=== PATIENT | female | born 2005 | race African-American/Black ===

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

== ENCOUNTER 2024-01-23 12:28 | Outpatient (CLI) | payer OTHER, SELFPAY ==
--- NOTE | ~2024-01-23 | XR_ITS ---
Clinical Indication: TB exposure PA and lateral views of the chest: Comparison: None Findings: The lungs are clear, without evidence of focal consolidation or pleural effusion. Cardiome diastinal silhouette is within normal limits. Bones and soft tissues are unremarkable. Impression: Normal chest. Reviewed, dictated and finalized at [facility]. Impression: Normal chest.
== END 2024-01-23 12:29 | disposition home or self-care (01) ==
LOC: CHSIMG 12:31
PROVIDERS: PCP Family Medicine; Visit Provider Registered Nurse
DX: Z20.1 Contact with and (suspected) exposure to tuberculosis (principal)
CPT/HCPCS: 71046

== ENCOUNTER 2024-05-05 07:17 | Outpatient (CLI) | payer MEDICAID, SELFPAY ==
--- NOTE | ~2024-05-05 | US_ITS ---
EXAMINATION: US pelvic complete w TV DATE: 05/05/2024 08:31 INDICATION: Pelvic pain. TECHNIQUE: Multiple transabdominal and transvaginal sonographic images of the pelvis were obtained. COMPARISON: CT abdomen and pelvis 11/22/2023 FINDINGS: TRANSABDOMINAL ULTRASOUND: The uterus measures 7.3 x 4.0 x 5.6 cm. There is no free fluid in the pelvis. TRANSVAGINAL ULTRASOUND: The endometrial complex measures 3 mm in thickness. The right ovary measures 3.3 x 1.6 x 2.2 cm. The left ovary measures 2.9 x 1.6 x 2.8 cm. There is normal vascular flow in the ovaries. IMPRESSION: 1. Normal pelvis. Reviewed, dictated and finalized at location A. IMPRESSION: 1. Normal pelvis.
== END 2024-05-05 07:18 | disposition home or self-care (01) ==
PROVIDERS: PCP Family Medicine; Visit Provider Registered Nurse
DX: R10.2 Pelvic and perineal pain (principal)
CPT/HCPCS: 76830; 76856

== ENCOUNTER 2024-12-29 08:35 | Outpatient (CLI) | payer OTHER, SELFPAY ==
--- NOTE | ~2024-12-29 | US_ITS ---
Pelvic ultrasound. Clinical History: Ovarian cyst Technique: Realtime transabdominal and transvaginal scanning of the pelvis was performed. Color flow Doppler and Doppler spectral analysis were performed. Findings: The uterus is anteverted. The endometrial stripe has a thickness of 5 mm. Trace fluid pres ent in the central cavity. No focal mass is identified. The right ovary measures 3.3 x 2.0 x 1.7 cm. No significant right ovarian or adnexal mass is seen. The left ovary measures 3.1 x 1.8 x 2.2 cm. No significant left ovarian or adnexal mass is seen. Sma ll bilateral follicular ovarian cysts are present. Vascular flow present in both ovaries on Doppler s pectral analysis. There is trace free fluid in the cul de sac. Impression: No significant abnormality seen. Reviewed, dictated and finalized at [facility]. Impression: No significant abnormality seen.
--- OUTSIDE RECORDS SUMMARY | 2024-12-29 08:56 | XMS_ITS | Encounter Summary ---
Author Organization [facility] Address [address] [place] [address] Care Team Providers Care Management Trainer Name Role Phone Dawit Rivera MD Primary Care Provider No, Physician Primary Care Provider Dawit Rivera MD Primary Care Provider Encounter Details Date Type Department Care Team (Late st Contact Info) Description 04/06/2020 Social Work [facility] [address] [place] [address] April Winston, MALINA Social History Tobacco Use Types Packs/Day Years Used Date Smoking Tobacco: Never Smokeless Tobacco: Never Alcohol Use Standard Drinks/Week Comments Never 0 (1 standard drink = 0.6 oz pur e alcohol) AUDIT-C Answer Date Recorded Q1: How often do you have a drink containing alc ohol? Never 01/07/2020 Average Number of Drinks Not on file 020 Frequency of Binge Drinking Not on file 12/15 Comments No Sex and Gender Information Value Date Recorded Sex Assigned at Not on file Legal Sex Female 11:25 PM CDT Gender Identity Not on file Sexual Orientation Not on file documented as of this encounter Plan of Treatment Not on file documented as of this encounter Visit Diagnoses Not on filedocumented in this encounter Care Teams Management Trainer Relationship Specialty Start Date End Date Dawit Rivera MD PCP - General 09/10/19 05/31/22 No, Physician PCP - General 06/01/22 05/25/24 Dawit Rivera MD [address] [place], [place] [id number] PCP - General Family Medicine 05/26/24 documented as of this encounter
--- OUTSIDE RECORDS SUMMARY | 2024-12-29 08:56 | XMS_ITS | Referral Summary ---
Author Organization [facility] Address [address] [place] [id number] Care Team Providers Care Botanical Technical Officer Name Role Phone Dawit Rivera MD Primary Care Provider Encounters Date Type Department Care Team Description 11/25/2024 1:00 PM CDT - 11/25/2024 11:59 PM CDT Hospital Encounter [facility] [address] [place] [id number] Discharge Disposition: Discharge to home or self care 11/24/2024 2:30 PM CDT Lab [address] [phone] 11/12/2024 3:07 PM KEYBOARDING TEACHER - 11/12/2024 11:59 PM KEYBOARDING TEACHER Hospital Encounter [facility] [address] [place] [id number] Screening-pulmonary TB Discharge Disposition: Discharge to home or self care 10/14/2024 [facility] Post Discharge Follow up phone call [facility] [address] [place] [id number] Tenisha Mckeon RN 10/13/2024 10:12 PM KEYBOARDING TEACHER - 10/14/2024 5:20 AM KEYBOARDING TEACHER Emergency [facility] [address] [place] [address] Valentino Byrd MD Winston, MD Nery Dehydration (Primary Dx); Nausea and vomiting, unspecified vomiting type; Diarrhea, unspecified type Discharge Disposition: Discharge to home or self care 10/07/2024 5:50 AM KEYBOARDING TEACHER - 10/07/2024 7:20 AM KEYBOARDING TEACHER Emergency [facility] [address] [place] [address] Lucia Brady MD Dental infection (Primary Dx); Pain due to dental caries Discharge Disposition: Discharge to home or self care from Last 3 Months Allergies No known active allergies Medications sertraline (ZOLOFT) 50 mg tablet Take 50 mg by mouth daily Active PNV with vehlthv-jaoz-BM 27 mg iron- 1 mg tabletIndicatio ns: Take 1 tablet by mouth daily 30 tablet 9 Active famotidine (PEPCID) 20 mg tablet Take 1 tablet (20 mg total) by mouth daily as needed for heartburn 20 tablet 0 Active HYDROcodone-zak taminophen (NORCO) 5-325 mg per tabletIndicatio ns:Pain Take 1 tablet by mouth every 4 (four) hours as needed for pain 12 tablet 0 Active ibuprofen (ADVIL,MOTRIN) 600 mg tabletIndicatio ns:Pain Take 1 tablet (600 mg total) by mouth 3 (three) times a day Take with food. 30 tablet 2 Active diphenhydrAMINE 25 mg capsule Take 1 tablet/capsule (25 mg total) by mouth every 6 (six) hours as needed for itching 20 capsule 3 Active penicillin v potassium (VEETID) 500 mg tablet Take 1 tablet (500 mg total) by mouth 3 (three) times a day 30 tablet 5 Active HYDROcodone-zak taminophen (NORCO) 5-325 mg per tabletIndicatio ns:Pain Take 1 tablet by mouth every 6 (six) hours as needed for pain for up to 6 doses 6 tablet 5 Active ondansetron (ZOFRAN) 4 mg tablet Take 1 tablet (4 mg total) by mouth every 6 (six) hours 12 tablet 5 Active Active Problems No known active problems Social History Tobacco Use Types Packs/Day Years [...] of Binge Drinking Not on file 12/15 Personal Safety Answer Date Recorded Have you ever been in or are you currently in a harmful physical or emotional relationship or is someone making you feel afraid or unsafe? Denies 10/13/2024 Comments No Sex and Gender Information Value Date Recorded Sex Assigned at Not on file Legal Sex Female 11:25 PM CDT Gender Identity Not on file Sexual Orientation Not on file Last Filed Vital Signs Vital Sign Reading Time Taken Comments Blood Pressure 121/74 10/13/2024 10:15 PM KEYBOARDING TEACHER Pulse 58 10/14/2024 1:00 AM KEYBOARDING TEACHER Temperature 37.1 C (98.7 F) 10/07/2024 5:47 AM KEYBOARDING TEACHER Respiratory Rate 24 10/14/2024 1:00 AM KEYBOARDING TEACHER Oxygen Saturation 98% 10/14/2024 1:00 AM KEYBOARDING TEACHER Inhaled Oxygen Concentration - - Weight 63.5 kg (139 lb 15.9 oz) 025 10:14 PM KEYBOARDING TEACHER Height 175.3 cm (5' 9 ) 01/01/2023 7:03 PM CDT Body Mass Index 20.67 01/01/2023 7:03 PM CDT Plan of Treatment Not on file Procedures Procedure Name Priority Date/Time Associated Diagnosis Comments CT ABDOMEN PELVIS WO CONTRAST Schedule Routine, Read Routine (OP Routine) 11/25/2024 2:02 PM CDT Abdominal pain, unspecified abdominal location XR CHEST PA LATERAL 2 VIEWS Schedule Routine, Read Routine (OP Routine) 11/12/2024 3:23 PM KEYBOARDING TEACHER Screening-pulmonar y TB CT ABDOMEN PELVIS W CONTRAST ED 10/14/2024 12:26 AM KEYBOARDING TEACHER XR CHEST 1 VIEW ED 10/13/2024 11:29 PM KEYBOARDING TEACHER POCT HCG, URINE Routine 10/13/2024 11:04 PM KEYBOARDING TEACHER URINALYSIS, MICROSCOPIC ONLY STAT 10/13/2024 10:39 PM KEYBOARDING TEACHER URINE CULTURE STAT 10/13/2024 10:39 PM KEYBOARDING TEACHER URINALYSIS AND REFLEX TO MICROSCOPIC AND CULTURE STAT 10/13/2024 10:39 PM KEYBOARDING TEACHER EGFR STAT 10/13/2024 10:13 PM KEYBOARDING TEACHER DIFFERENTIAL AUTO STAT 10/13/2024 10: 13 PM KEYBOARDING TEACHER LIPASE STAT 10/13/2024 10:13 PM KEYBOARDING TEACHER SEPSIS LACTATE WITH REFLEX Routine 10/13/2024 10:13 PM KEYBOARDING TEACHER COMPREHENSIVE METABOLIC PANEL STAT 10/13/2024 10:13 PM KEYBOARDING TEACHER CBC WITH AUTO DIFFERENTIAL STAT 10/13/2024 10:13 PM KEYBOARDING TEACHER N. GONORRHOEAE/C. TRACHOMATIS AMPLIFICATION Routine 01/07/2020 12:14 PM CDT from Last 3 Months or Most Recently Relevant to Health Maintenance Results * CT Abdomen Pelvis WO Contrast (11/25/2024 2:02 PM CDT) Anatomical Region Laterality Modality Body N/A Computed Tomogra phy 12/01/2024 7:53 AM CDT Narrative 12/01/2024 8:01 AM CDT EXAM DESCRIPTION: CT ABDOMEN PELVIS WO CONTRAST REASON FOR STUDY: r10.9 Pelvic pain for 3 days, hematuria, history of stones TECHNIQUE: CT scan of the abdomen and pelvis performed without intravenous and without oral contrast using helical scanning technique. Reconstructed coronal and sagittal MPR images reviewed. All images stored on PACS. Automated exposure control was used as a dose optimization technique for this examination. COMPARISON: 10/14/2024 FINDINGS: The sensitivity for detection of visceral lesions is diminished without the use of intravenous contrast. LOWER CHEST: No significant pulmonary abnormalities. No effusion. LIVER: Normal size. No identified cystic or solid masses. GALLBLADDER: No stones identified. No wall thickening or inflammatory changes. BILE DUCTS: No intrahepatic or extrahepatic ductal dilatation. SPLEEN: Normal size. No focal lesions. PANCREAS: No identified cystic or solid masses. No significant calcifications. No adjacent inflammation or peripancreatic fluid collections. Pancreatic duct not dilated. ADRENALS: Normal. KIDNEYS/URINARY TRACT: No identified significant cystic or solid masses. No stones. No hydronephrosis or hydroureter. Urinary bladder is unremarkable. GI: There is no bowel obstruction or inflammatory bowel disease. A large amount of stool is seen in the colon. PERITONEUM: There is no free air. There may be a small amount of free pelvic fluid. RETROPERITONEUM: No mass or adenopathy. REPRODUCTIVE: A 3.5 x 5.5 cm oval fluid collection in the right adnexa probably represents an ovarian cyst. VASCULATURE: No abdominal aortic aneurysm. MUSCULOSKELETAL: No significant abnormality. OTHER: No other abnormality. IMPRESSION: Large amount of stool in the colon. Approximately 5.5 cm fluid collection in the right adnexa, probably an ovarian cyst. Pelvic ultrasound is recommended for further evaluation. There may be a small amount of adjacent free pelvic fluid. THIS IS AN ELECTRONICALLY VERIFIED FINAL REPORT 12/01/2024 8:01 AM - Electronically signed by Julio C Reis M.D. YANDY: YANDY Report ID: [id number] Reading Location: [id number] Procedure Note Glenn Reis MD - 12/01/2024 EXAM DESCRIPTION: CT ABDOMEN PELVIS WO CONTRAST REASON FOR STUDY: r10.9 Pelvic pain for 3 days, hematuria, history of stones TECHNIQUE: CT scan of the abdomen and pelvis performed without intravenousand without oral contrast using helical scanning technique. Reconstructed coronal and sagittal MPR images reviewed. All images stored on PACS.Automated exposure control was used as a dose optimization technique for this examination. COMPARISON: 10/14/2024 FINDINGS: The sensitivity for detection of visceral lesions is diminished withoutthe use of intravenous contrast. LOWER CHEST: No significant pulmonary abnormalities. No effusion. LIVER: Normal size. No identified cystic or solid masses. GALLBLADDER: No stones identified. No wall thickening or inflammatory changes. BILE DUCTS: No intrahepatic or extrahepatic ductal dilatation. SPLEEN: Normal size. No focal lesions. PANCREAS: No identified cystic or solid masses. No significant calcifications. No adjacent inflammation or peripancreatic fluidcollections. Pancreatic duct not dilated. ADRENALS: Normal. KIDNEYS/URINARY TRACT: No identified significant cystic or solid masses.No stones. No hydronephrosis or hydroureter. Urinary bladder isunremarkable. GI: There is no bowel obstruction or inflammatory bowel disease. Alarge amount of stool is seen in the colon. PERITONEUM: There is no free air. There may be a small amount of free pelvic fluid. RETROPERITONEUM: No mass or adenopathy. REPRODUCTIVE: A 3.5 x 5.5 cm oval fluid collection in the right adnexa probably represents an ovarian cyst. VASCULATURE: No abdominal aortic aneurysm. MUSCULOSKELETAL: No significant abnormality. OTHER: No other abnormality. IMPRESSION: Large amount of stool in the colon. Approximately 5.5 cm fluid collection in the right adnexa, probably an ovarian cyst. Pelvic ultrasound is recommended for further evaluation.There may be a small amount of adjacent free pelvic fluid. THIS IS AN ELECTRONICALLY VERIFIED FINAL REPORT 12/01/2024 8:01 AM - Electronically signed by Julio C Reis M.D. 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 COMPARISON: 10/13/2024. FINDINGS: LUNGS: No focal opacity, pleural effusion, or pneumothorax. HEART/MEDIASTINUM: Cardiac silhouette normal in size. Mediastinal and hilar contours appear normal. LINES/TUBES: None. BONES: No acute osseous abnormality. IMPRESSION: No acute cardiopulmonary abnormality. THIS IS AN ELECTRONICALLY VERIFIED FINAL REPORT 11/16/2024 7:40 AM - Electronically signed by Edgar Mccoy M.D. 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 COMPARISON: 10/13/2024. FINDINGS: LUNGS: No focal opacity, pleural effusion, or pneumothorax. HEART/MEDIASTINUM: Cardiac silhouette normal in size. Mediastinal andhilar contours appear normal. LINES/TUBES: None. BONES: No acute osseous abnormality. IMPRESSION: No acute cardiopulmonary abnormality. THIS IS AN ELECTRONICALLY VERIFIED FINAL REPORT 11/16/2024 7:40 AM - Electronically signed by Edgar Mccoy M.D. CH: ERNESTINE Report ID: [id number] Reading Location: [id number] David Lo SPACE ENGINEER IMG XR PROCEDURES F inal Result * CT Abdomen Pelvis W Contrast (10/14/2024 12:26 AM KEYBOARDING TEACHER) Anatomical Region Laterality Modality Body N/A Computed Tomogra phy 10/14/2024 12:3 1 AM KEYBOARDING TEACHER Narrative 10/14/2024 12:34 AM KEYBOARDING TEACHER EXAM DESCRIPTION: CT ABDOMEN PELVIS W CONTRAST REASON FOR STUDY: Abdominal pain, acute, nonlocalized Patient presents with abdominal pain nausea and vomiting onset this morning. TECHNIQUE: CT scan of the abdomen and pelvis performed with intravenous and without oral contrast using helical scanning technique with dynamic intravenous contrast injection. Reconstructed coronal and sagittal MPR images reviewed. All images stored on PACS. Automated exposure control was used as a dose optimization technique for this examination. CONTRAST TYPE/DOSE: 100mL of IOVERSOL 350 MG IODINE/ML INTRAVENOUS SYRINGE injected via intravenous COMPARISON: None FINDINGS: LOWER CHEST: No significant pulmonary abnormalities. No effusion. LIVER: Normal size. No identified cystic or solid masses. GALLBLADDER: Unremarkable BILE DUCTS: No intrahepatic or extrahepatic ductal dilatation. SPLEEN: Normal size. No focal lesions. PANCREAS: No identified cystic or solid masses. No significant calcifications. No adjacent inflammation or peripancreatic fluid collections. Pancreatic duct not dilated. ADRENALS: Normal. KIDNEYS/URINARY TRACT: No identified significant cystic or solid masses. No visualized stones. No hydronephrosis or hydroureter. Symmetric enhancement. Urinary bladder is unremarkable. GI: No dilated bowel loops. No obvious wall thickening. The appendix is not clearly identified. No significant diverticular disease. PERITONEUM: No ascites or free air. RETROPERITONEUM: No mass or adenopathy. REPRODUCTIVE: No significant abnormality. VASCULATURE: No abdominal aortic aneurysm. MUSCULOSKELETAL: No significant abnormality. OTHER: No other abnormality. IMPRESSION: No acute finding. THIS IS AN ELECTRONICALLY VERIFIED FINAL REPORT 10/14/2024 12:34 AM - Electronically signed by Jm Solano M.D. KH: RENE Report ID: [id number] Reading Location: [place] [address] Procedure Note Jm Solano MD - 10/14/2024 EXAM DESCRIPTION: CT ABDOMEN PELVIS W CONTRAST REASON FOR STUDY: Abdominal pain, acute, nonlocalized Patient presents with abdominal pain nausea and vomiting onset thismorning. TECHNIQUE: CT scan of the abdomen and pelvis performed with intravenousand without oral contrast using helical scanning technique with dynamic intravenous contrast injection. Reconstructed coronal and sagittal MPRimages reviewed. All images stored on PACS. Automated exposure control was usedas a dose optimization technique for this examination. CONTRAST TYPE/DOSE: 100mL of IOVERSOL 350 MG IODINE/ML INTRAVENOUSSYRINGE injected via intravenous COMPARISON: None FINDINGS: LOWER CHEST: No significant pulmonary abnormalities. No effusion. LIVER: Normal size. No identified cystic or solid masses. GALLBLADDER: Unremarkable BILE DUCTS: No intrahepatic or extrahepatic ductal dilatation. SPLEEN: Normal size. No focal lesions. PANCREAS: No identified cystic or solid masses. No significant calcifications. No adjacent inflammation or peripancreatic fluidcollections. Pancreatic duct not dilated. ADRENALS: Normal. KIDNEYS/URINARY TRACT: No identified significant cystic or solid masses.No visualized stones. No hydronephrosis or hydroureter. Symmetricenhancement. Urinary bladder is unremarkable. GI: No dilated bowel loops. No obvious wall thickening. The appendix isnot clearly identified. No significant diverticular disease. PERITONEUM: No ascites or free air. RETROPERITONEUM: No mass or adenopathy. REPRODUCTIVE: No significant abnormality. VASCULATURE: No abdominal aortic aneurysm. MUSCULOSKELETAL: No significant abnormality. OTHER: No other abnormality. IMPRESSION: No acute finding. THIS IS AN ELECTRONICALLY VERIFIED FINAL REPORT 10/14/2024 12:34 AM - Electronically signed by Jm Solano M.D. KH: KH Report ID: [id number] Reading Location: [place] [address] Valentino Byrd MD IMG CT PROCEDURES Final Result * XR Chest 1 Vw Portable (10/13/2024 11:29 PM KEYBOARDING TEACHER) Anatomical Region Laterality Modality Body, Chest N/A Computed Radiogr aphy 10/13/2024 11:3 6 PM KEYBOARDING TEACHER Narrative 10/13/2024 11:39 PM KEYBOARDING TEACHER EXAM DESCRIPTION: XR CHEST 1 VIEW REASON FOR STUDY: Pain Patient arrives to the ED with complaints of abdominal pain and vomiting that began roughly 2 hours ago. Patient states she had 3 teeth pulled yesterday and started on penicillin today. Patient ashen in color at time of triage. Patient visitor states she was at [facility] and was becoming bluish in the lips and brought her here. TECHNIQUE: Frontal radiographic view(s) of the chest. COMPARISON: 06/24/2017 FINDINGS: LUNGS: The lungs are clear. No focal pulmonary parenchymal consolidation, pleural effusion, or pneumothorax. HEART/MEDIASTINUM: Cardiac silhouette normal in size. Mediastinal and hilar contours appear normal. LINES/TUBES: None. BONES: No acute osseous abnormality. IMPRESSION: No acute cardiopulmonary abnormality. THIS IS AN ELECTRONICALLY VERIFIED FINAL REPORT 10/13/2024 11:39 PM - Electronically signed by Oscar Monson M.D. AT: AT Report ID: [id number] Reading Location: [id number] Procedure Note Oscar Monson MD - 10/13/2024 EXAM DESCRIPTION: XR CHEST 1 VIEW REASON FOR STUDY: Pain Patient arrives to the ED with complaints of abdominal pain and vomitingthat began roughly 2 hours ago. Patient states she had 3 teeth pulled yesterdayand started on penicillin today. Patient ashen in color at time of triage.Patient visitor states she was at [facility] and was becoming bluish in thelips and brought her here. TECHNIQUE: Frontal radiographic view(s) of the chest. COMPARISON: 06/24/2017 FINDINGS: LUNGS: The lungs are clear. No focal pulmonary parenchymalconsolidation, pleural effusion, or pneumothorax. HEART/MEDIASTINUM: Cardiac silhouette normal in size. Mediastinal andhilar contours appear normal. LINES/TUBES: None. BONES: No acute osseous abnormality. IMPRESSION: No acute cardiopulmonary abnormality. THIS IS AN ELECTRONICALLY VERIFIED FINAL REPORT 10/13/2024 11:39 PM - Electronically signed by Oscar Monson M.D. AT: AT Report ID: [id number] Reading Location: [id number] us Valentino Byrd MD IMG XR PROCEDURES Final Result * POCT hCG, urine (10/13/2024 11:04 PM KEYBOARDING TEACHER) HCG, ur, POC Negative Negative Lot Number [id number] QC Backgroud Clear Acceptable QC Control Line Acceptable Urine 10/13/2024 11:0 4 PM KEYBOARDING TEACHER us Valentino Byrd MD POINT OF CARE TEST ORDERABLES Final Result * (ABNORMAL) Urinalysis reflex to microscopic and culture Urine (10/13/2024 10:39 PM KEYBOARDING TEACHER) Color, ur Yellow Yellow Clarity, ur Turbid(A) Clear [facility] (MY) Specific gravity, ur 1.024 1.003 - 1.030 [facility] (MY) pH, urine 5.5 [facility] (MY) Comment: Interpretive Data U rine pH is affected by diet, medications, systemic acid-base disturbances, and renal tubular function. pH may affect urinary stone formation. For example, urine pH below 6.0 may help reduce the tendency for calcium phosphate stones and pH greater than 6.0 may reduce the tendency for uric acid stone formation. Source: [facility] Current Interpretive Data was last revised on 2017 Protein, ur ql 1+(A) Negative [facility] (MY) Glucose, ur ql Negative Negative [facility] (MY) Ketones, ur 3+(A) Negative [facility] (MY) Bilirubin, ur Negative Negative [facility] (MY) Blood, ur 3+(A) Negative [facility] (MY) Urobilinogen, ur <2.0 <2.0 mg/dL [facility] (MY) Nitrite, ur Negative Negative [facility] (MY) Leukocyte esterase, ur Negative Negative [facility] (MY) UA reflex comment Reflex to microscopic UA will be performed. [facility] (MY) Urine 10/13/2024 10:3 9 PM KEYBOARDING TEACHER 10/13/2024 11:03 PM KEYBOARDING TEACHER us Valentino Byrd MD LAB MICROBIOLOGY - GENERAL ORD ERABLES Final Result [facility] (MY[facility] 1 [facility] [place] [address] * (ABNORMAL) Urinalysis, microscopic only (10/13/2024 10:39 PM KEYBOARDING TEACHER) WBC, ur 11-20(A) 0 - 5 /HPF RBC, ur >50(A) 0 - 2 /HPF [facility] (MY) Epithelial cells, squamous, ur 1-5 0 - 5 /HPF [facility] (MY) Bacteria, ur Trace(A) [facility] (MY) Mucous, ur Present(A) [facility] (MY) Culture Reflex Comment Reflex to urine culture will be performed. [facility] (MY) Urine 10/13/2024 10:3 9 PM KEYBOARDING TEACHER 10/13/2024 11:03 PM KEYBOARDING TEACHER Valentino Byrd MD LAB URINE ORDERABLES Final Res ult [facility]AWLA (MY) 1 [facility] [place] [address] * Urine culture Urine (10/13/2024 10:39 PM KEYBOARDING TEACHER) Report Final Report: Less than 100,000 colonies/mL (clinically insignificant growth based on current clinical standards) Comment:Testing performed by : [facility], [address] [facility] [place] [address] Organism (CLINICALLY INSIGNIFICANT GROWTH LESLIE CHAWLA (MY) Urine 10/13/2024 10:3 9 PM KEYBOARDING TEACHER 10/14/2024 6:16 AM KEYBOARDING TEACHER Narrative [facility] CHAWLA (MY) - 10/15/2024 10:11 AM KEYBOARDING TEACHER Urine culture reflexed based upon urinalysis results. Testing performed by [facility] ([phone]) Valentino Byrd MD LAB MICROBIOLOGY - GENERAL ORD ERABLES Final Result Performing Organization Address [facility]/ZIP Co de Phone Number KARENDEACON CAMMY (MY) 1 [facility] [place] [address] * Sepsis Lactate w/ Reflex (10/13/2024 10:13 PM KEYBOARDING TEACHER) Sepsis Lactate 2.0 0.7 - 2.0 mmol/L Blood 10/13/2024 10:1 3 PM KEYBOARDING TEACHER 10/13/2024 10:16 PM KEYBOARDING TEACHER Valentino Byrd MD LAB BLOOD ORDERABLES Final Res ult LESLIE CHAWLA (MY) 1 [facility] [place] [address] * eGFR (10/13/2024 10:13 PM KEYBOARDING TEACHER) eGFR >90 >=60 mL/min/1. 73 m2 Comment: Interpretive Data Reference Interval Normal >/= 90 mL/min/1.73m2 Mildly decreased* 60 - 89 mL/min/1.73m2 Mildly to moderately decreased 45 - 59 mL/min/1.73m2 Moderately to severely decreased 30 - 44 mL/min/1.73m2 Severely decreased 15 - 29 mL/min/1.73m2 Kidney Failure < 15 mL/min/1.73m2 *Relative to young adult level Estimated glomerular filtration rate is determined by the 2020 CKD-EPI equation recommended by the National Kid[employer] (A Unifying Approach to GFR Estimation: Recommendations of the NKF-ASK Task Force on Reassessing the Inclusion of Race in Diagnosing Kidney Disease, SN 2020). The CKD-EPI equation should not be used for patients with unstable renal function and has not been validated in children and those over 70. Current interpretive data was last reviewed 2021. Blood 10/13/2024 10:1 3 PM KEYBOARDING TEACHER 10/13/2024 10:16 PM KEYBOARDING TEACHER us Valentino Byrd MD LAB BLOOD ORDERABLES Final Res ult [facility] ([place] 1 [facility] Department [place] [address] * (ABNORMAL) Differential, auto (10/13/2024 10:13 PM KEYBOARDING TEACHER) Neutrophil abs 17.0(H) 1.5 - 6.5 K/cumm Imm gran abs 0.1 0.0 - 0.1 K/cumm [facility] (MY) Lymphocyte abs 1.2 0.8 - 3.3 K/cumm [facility] (MY) Monocyte abs 0.9(H) 0.2 - 0.8 K/cumm [facility] (MY) Eosinophil abs 0.0 0.0 - 0.5 K/cumm [facility] (MY) Basophil abs 0.1 0.0 - 0.1 K/cumm [facility] (MY) Neutrophil pct 88.3 % [facility] (MY) Comment: Interpretive Data Percent cell count reference ranges are not reported, since discordance with absolute values may lead to misinterpretation of CBC data. Current Interpretive Data was last revised on 2017. Imm gran pct 0.5 % [facility] (MY) Comment: Interpretive Data Percent cell count reference ranges are not reported, since discordance with absolute values may lead to misinterpretation of CBC data. Current Interpretive Data was last revised on 2017. Lymphocyte pct 6.3 % [facility] ([place]) Comment: Interpretive Data Percent cell count reference ranges are not reported, since discordance with absolute values may lead to misinterpretation of CBC data. Current Interpretive Data was last revised on 2017. Monocyte pct 4.5 % [facility] ([place]) Comment: Interpretive Data Percent cell count reference ranges are not reported, since discordance with absolute values may lead to misinterpretation of CBC data. Current Interpretive Data was last revised on 2017. Eosinophil pct 0.1 % [facility] (MY) Comment: Interpretive Data Percent cell count reference ranges are not reported, since discordance with absolute values may lead to misinterpretation of CBC data. Current Interpretive Data was last revised on 2017. Basophil pct 0.3 % [facility] (MY) Comment: Interpretive Data Percent cell count reference ranges are not reported, since discordance with absolute values may lead to misinterpretation of CBC data. Current Interpretive Data was last revised on 2017. Blood 10/13/2024 10:1 3 PM KEYBOARDING TEACHER 10/13/2024 10:16 PM KEYBOARDING TEACHER us Valentino Byrd MD LAB BLOOD ORDERABLES Final Res ult LESLIE CHAWLA (MY) 1 [facility] Department [place] [address] * (ABNORMAL) CBC with auto differential (10/13/2024 10:13 PM KEYBOARDING TEACHER) WBC 19.3(H) 3.8 - 9.9 K/cumm Hgb 12.9 11.9 - 15.5 g/dL [facility] (MY) Hct 40.1 35.6 - 45.5 % [facility] (MY) Plt 313 150 - 400 K/cumm [facility] (MY) MPV 10.1 9.1 - 12.3 fL [facility] (MY) RBC 4.61 3.90 - 5.20 M/cumm [facility] (MY) MCV 87.0 81.3 - 96.4 fL [facility] (MY) MCH 28.0 27.1 - 33.3 pg [facility] (MY) MCHC 32.2(L) 32.3 - 35.7 g/dL [facility] (MY) RDW CV 13.4 11.1 - 14.9 % [facility] (MY) RDW SD 43.0 35.7 - 48.1 fL [facility] (MY) NRBC abs 0.00 0.00 - 0.01 K/cumm [facility] (MY) Blood 10/13/2024 10:1 3 PM KEYBOARDING TEACHER 10/13/2024 10:16 PM KEYBOARDING TEACHER Valentino Byrd MD LAB BLOOD ORDERABLES Final Res ult [facility] (MY) 1 [facility] [place] [address] * Lipase (10/13/2024 10:13 PM KEYBOARDING TEACHER) Lipase 32 10 - 99 Units/L Blood 10/13/2024 10:1 3 PM KEYBOARDING TEACHER 10/13/2024 10:16 PM KEYBOARDING TEACHER Valentino Byrd MD LAB BLOOD ORDERABLES Final Res ult [facility] (MY) 1 [facility] [place] [address] * (ABNORMAL) Comprehensive metabolic panel (10/13/2024 10:13 PM KEYBOARDING TEACHER) Sodium 138 135 - 145 mmol/L Potassium, pl 3.6 3.3 - 4.9 mmol/L [facility] (MY) Chloride 105 97 - 110 mmol/L [facility] (MY) CO2 19(L) 22 - 32 mmol/L [facility] (MY) Anion gap 15 2 - 15 mmol/L [facility] (MY) BUN 14 6 - 25 mg/dL [facility] (MY) Creatinine 0.72 0.60 - 1.10 mg/dL [facility] (MY) Glucose 175 70 - 199 mg/dL [facility] (MY) Comment: Interpretive Data Fasting glucose >/= 126 mg/dl is diagnostic for diabetes. Fasting is defined as no caloric intake for at least 8 hours. Fasting glucose between 100 mg/dl to 125 mg/dl is diagnostic of prediabetes. In a patient with classic symptoms of hyperglycemia or hyperglycemic crisis, a random glucose >/= 200 mg/dl is diagnostic for diabetes. In the absence of unequivocal hyperglycemia, results should be confirmed by repeat testing. The classification and Diagnosis of Diabetes Diabetes Care 2021; 46: S19-S40. Current interpretive data was last revised 2022. Calcium 9.3 8.5 - 10.3 mg/dL [facility] (MY) Bilirubin, total 0.3 0.1 - 1.2 mg/dL [facility] (MY) Protein, pl 7.5 6.5 - 8.5 g/dL [facility] (MY) Albumin 4.5 3.5 - 5.0 g/dL [facility] (MY) Alk phos 63(L) 70 - 260 Units/L [facility] (MY) ALT 11 7 - 45 Units/L [facility] (MY) AST 16 10 - 45 Units/L [facility] (MY) Blood 10/13/2024 10:1 3 PM KEYBOARDING TEACHER 10/13/2024 10:16 PM KEYBOARDING TEACHER us Valentino Byrd MD LAB BLOOD ORDERABLES Final Res ult [facility] (MY) 1 [facility] Department [place] [address] * N. gonorrhoeae/C. trachomatis Amplification Urine (01/07/2020 12:14 PM CDT) C. trachomatis See Comment Not detected LESLIE CHAWLA (MY) Comment: Result is indeterminate suggest recollection. Testing performed by: [facility], [address] [place] [address]., [address] N. gonorrhoeae Not detected Not detected LESLIE CHAWLA (MY) Comment: Testing performed by the [facility]. This assay detects Chlamydia trachomatis and Neisseria gonorrhoeae by nucleic acid amplification testing (NAAT). This test is approved by the [facility] Food and Drug Administration and the performance characteristics have been verified by the laboratory. The performance characteristics of this test have not been evaluated in women or individuals less than 16 years of age. Testing performed by: [facility], [address] [place] [address]., [address] Urine (None) 01/07/2020 12:1 4 PM CDT 01/07/2020 6:24 PM CDT us Yemi Leigh MD LAB MICROBIOLOGY - GENERAL ORDERABLES Final Result LESLIE CHAWLA (MY) 1 [facility] Department [place] [address] from Last 3 Months or Most Recently Relevant to Health Maintenance Insurance [facility] Advance Directives For more information, please contact: [phone] * Full Code (Latest Code Status on File) Date Activated Date Inactivated Comments 04/06/2020 2:00 PM 04/08/2020 4:48 PM * Full Code Date Activated Date Inactivated Comments 04/05/2020 7:29 PM 04/06/2020 1:59 PM Full CPR in case of cardiopulmonary arrest Care Teams Botanical Technical Officer Relationship Specialty Start Date End Date Dawit Rivera MD [address] [place], [place] [id number] PCP - General Family Medicine 05/26/24
--- OUTSIDE RECORDS SUMMARY | 2024-12-29 08:56 | XMS_ITS | Clinical Summary ---
Author Organization [facility] Address [address] [place] [id number] Care Team Providers Care Footwear Sales Associate Name Role Phone Dawit Rivera MD Primary Care Provider Allergies No known active allergies Medications sertraline (ZOLOFT) 50 mg tablet Take 50 mg by mouth daily Active PNV with lbhlfte-efon-UV 27 mg iron- 1 mg tabletIndicatio ns: [...] Active Active Problems No known active problems Encounters Date Type Department Care Team Description 11/25/2024 1:00 PM CDT - 11/25/2024 11:59 PM CDT Hospital Encounter [facility] [address] [place] [phone] Discharge Disposition: Discharge to home or self care 11/24/2024 2:30 PM CDT Lab [address] [phone] 11/12/2024 3:07 PM INDUSTRIAL HYGIENE MANAGER - 11/12/2024 11:59 PM INDUSTRIAL HYGIENE MANAGER Hospital Encounter [address] [address] Screening-pulmonary TB Discharge Disposition: Discharge to home or self care 10/14/2024 [facility] Post Discharge Follow up phone call [facility] [address] [place] [address] Tenisha Mckeon RN 10/13/2024 10:12 PM INDUSTRIAL HYGIENE MANAGER - 10/14/2024 5:20 AM [facility] Emergency [facility] [address] [place] [address] Valentino Byrd MD MedoraNery MD Dehydration (Primary Dx); Nausea and vomiting, unspecified vomiting type; Diarrhea, unspecified type Discharge Disposition: Discharge to home or self care 10/07/2024 5:50 AM INDUSTRIAL HYGIENE MANAGER - 10/07/2024 7:20 AM [facility] Emergency [facility] [address] [place] [id number] Lucia Brady MD Dental infection (Primary Dx); Pain due to dental caries Discharge Disposition: Discharge to home or self care from Last 3 Months Surgical History Surgery Date Site/Laterality Comments UMBILICAL HERNIA REPAIR Medical History Medical History Date Comments Chlamydia 2019 Social History Tobacco Use Types Packs/Day Years [...] on file Sexual Orientation Not on file Obstetrics History Para Term AB IAB SAB Ectopic Multiple Livin g Live Births 1 1 1 0 1 1 Date Outcome GA Total Labor Labor/2nd/3rd Weight Sex Type Anes PTL Denisha A1 A5 Name Clin 2019 Term 40w 2d 4h 53m 3h 29m/1h 18m/0h 06m 3.889 kg (8 lb 9.2 oz) M Vag-S pont Epidur al N Livin g 8 9 CHRIS SON,B OYABB Paras Nicole MD Complications:None Delivery Location:This [facility]) Last Filed Vital Signs Vital Sign Reading Time Taken Comments Blood Pressure 121/74 10/13/2024 10:15 PM INDUSTRIAL HYGIENE MANAGER Pulse 58 10/14/2024 1:00 AM INDUSTRIAL HYGIENE MANAGER Temperature 37.1 C (98.7 F) 10/07/2024 5:47 AM INDUSTRIAL HYGIENE MANAGER Respiratory Rate 24 10/14/2024 1:00 AM INDUSTRIAL HYGIENE MANAGER Oxygen Saturation 98% 10/14/2024 1:00 AM INDUSTRIAL HYGIENE MANAGER Inhaled Oxygen Concentration - - Weight 63.5 kg (139 lb 15.9 oz) 025 10:14 PM INDUSTRIAL HYGIENE MANAGER Height 175.3 cm (5' 9 ) 01/01/2023 7:03 PM CDT Body Mass Index 20.67 01/01/2023 7:03 PM CDT Plan of Treatment Health Maintenance Due Date Last Done Comments Depression Screening 2004 Hepatitis C Screening 2004 Meningococcal B Vaccine (1 of 2 - Standard) 2020 Chlamydia and Gonorrhea (GC/CT) Screening 01/06/2021 01/07/2020 Regular Well Visit/Exam 18-64 2022 Influenza Vaccine (Season Ended) 2025 DTaP/Tdap/Td Vaccine (8 - Td or Tdap) 03/07/2030 03/07/2020, 04/16/2016, 05/03/2010, Additional history exists Hepatitis B Screening Completed 04/30/2005 , 02/28/2005, 2004, Additional history exists Pneumococcal vaccine <65 Completed 006, 04/30/2005, 02/28/2005, Additional history exists Varicella Vaccines Completed 05/03/2010, 03/13/2006 Meningococcal Vaccine Aged Out 04/16/2016 No billie galilea eligible based on patient's age to complete this topic HPV Vaccines Completed 07/19/2019, 04/16/2016 Procedures Procedure Name Priority Date/Time Associated Diagnosis Comments CT ABDOMEN PELVIS WO CONTRAST Schedule Routine, Read Routine (OP Routine) 11/25/2024 2:02 PM CDT Abdominal pain, unspecified abdominal location XR CHEST PA LATERAL 2 VIEWS Schedule Routine, Read Routine (OP Routine) 11/12/2024 3:23 PM INDUSTRIAL HYGIENE MANAGER Screening-pulmonar y TB CT ABDOMEN PELVIS W CONTRAST ED 10/14/2024 12:26 AM INDUSTRIAL HYGIENE MANAGER XR CHEST 1 VIEW ED 10/13/2024 11:29 PM INDUSTRIAL HYGIENE MANAGER POCT HCG, URINE Routine 10/13/2024 11:04 PM INDUSTRIAL HYGIENE MANAGER URINALYSIS, MICROSCOPIC ONLY STAT 10/13/2024 10:39 PM INDUSTRIAL HYGIENE MANAGER URINE CULTURE STAT 10/13/2024 10:39 PM INDUSTRIAL HYGIENE MANAGER URINALYSIS AND REFLEX TO MICROSCOPIC AND CULTURE STAT 10/13/2024 10:39 PM INDUSTRIAL HYGIENE MANAGER EGFR STAT 10/13/2024 10:13 PM INDUSTRIAL HYGIENE MANAGER DIFFERENTIAL AUTO STAT 10/13/2024 10: 13 PM INDUSTRIAL HYGIENE MANAGER LIPASE STAT 10/13/2024 10:13 PM INDUSTRIAL HYGIENE MANAGER SEPSIS LACTATE WITH REFLEX Routine 10/13/2024 10:13 PM INDUSTRIAL HYGIENE MANAGER COMPREHENSIVE METABOLIC PANEL STAT 10/13/2024 10:13 PM INDUSTRIAL HYGIENE MANAGER CBC WITH AUTO DIFFERENTIAL STAT 10/13/2024 10:13 PM INDUSTRIAL HYGIENE MANAGER N. GONORRHOEAE/C. TRACHOMATIS AMPLIFICATION Routine 01/07/2020 12:14 [...] C Reis M.D. YANDY: YANDY Report ID: [id number] Reading Location: [id number] Procedure Note Glenn Reis MD - 12/01/2024 [...] C Reis M.D. YANDY: YANDY Report ID: [id number] Reading Location: [id number] us Larisa Mcconnell MD IMG CT PROCEDURES Catarina l Result * XR Chest PA Lateral 2 Views (11/12/2024 3:23 PM INDUSTRIAL HYGIENE MANAGER) Anatomical Region Laterality Modality Body, Chest N/A Computed Radiogr aphy 11/16/2024 7:40 AM INDUSTRIAL HYGIENE MANAGER Narrative 11/16/2024 7:40 AM INDUSTRIAL HYGIENE MANAGER EXAM DESCRIPTION: XR CHEST PA LATERAL 2 [...] Edgar Mccoy M.D. CH: ERNESTINE Report ID: [id number] Reading Location: [id number] Procedure Note Edgar Mccoy Jr., MD - [...] Edgar Mccoy M.D. CH: ERNESTINE Report ID: [id number] Reading Location: [id number] David Lo ESCROW SECRETARY IMG XR PROCEDURES F inal Result * CT Abdomen Pelvis W Contrast (10/14/2024 12:26 AM INDUSTRIAL HYGIENE MANAGER) Anatomical Region Laterality Modality Body N/A Computed Tomogra phy 10/14/2024 12:3 1 AM INDUSTRIAL HYGIENE MANAGER Narrative 10/14/2024 12:34 AM INDUSTRIAL HYGIENE MANAGER EXAM DESCRIPTION: CT ABDOMEN PELVIS W CONTRAST [...] Jm Solano M.D. KH: RENE Report ID: [id number] Reading Location: [place] [address] Procedure Note Jm Solano MD - 10/14/2024 [...] Jm Solano M.D. KH: KH Report ID: [id number] Reading Location: [id number] Valentino Byrd MD IMG CT PROCEDURES Final Result * XR Chest 1 Vw Portable (10/13/2024 11:29 PM INDUSTRIAL HYGIENE MANAGER) Anatomical Region Laterality Modality Body, Chest N/A Computed Radiogr aphy 10/13/2024 11:3 6 PM INDUSTRIAL HYGIENE MANAGER Narrative 10/13/2024 11:39 PM INDUSTRIAL HYGIENE MANAGER EXAM DESCRIPTION: XR CHEST 1 VIEW REASON FOR STUDY: Pain Patient arrives to the ED with complaints of abdominal pain and vomiting that began roughly 2 hours ago. Patient states she had 3 teeth pulled yesterday and started on penicillin today. Patient ashen in color at time of triage. Patient visitor states she was at [facility] and was becoming bluish in the [...] Oscar Monson M.D. AT: AT Report ID: [id number] Reading Location: [id number] Procedure Note Oscar Monson MD - 10/13/2024 EXAM DESCRIPTION: XR CHEST 1 VIEW REASON FOR STUDY: Pain Patient arrives to the ED with complaints of abdominal pain and vomitingthat began roughly 2 hours ago. Patient states she had 3 teeth pulled yesterdayand started on penicillin today. Patient ashen in color at time of triage.Patient visitor states she was at [facility] and was becoming bluish in thelips [...] Oscar Monson M.D. AT: AT Report ID: [id number] Reading Location: [place] [address] Valentino Byrd MD IMG XR PROCEDURES Final Result * POCT hCG, urine (10/13/2024 11:04 PM INDUSTRIAL HYGIENE MANAGER) HCG, ur, POC Negative Negative Lot Number [id number] QC Backgroud Clear Acceptable QC Control Line Acceptable Urine 10/13/2024 11:0 4 PM INDUSTRIAL HYGIENE MANAGER Valentino Byrd MD POINT OF CARE TEST ORDERABLES Final Result * (ABNORMAL) Urinalysis reflex to microscopic and culture Urine (10/13/2024 10:39 PM INDUSTRIAL HYGIENE MANAGER) Color, ur Yellow Yellow Clarity, ur Turbid(A) Clear LESLIE Arcos (MY) Specific gravity, ur 1.024 1.003 - 1.030 [facility] (MY) pH, urine 5.5 LESLIE CHAWLA (MY) Comment: Interpretive Data U rine pH is affected by diet, medications, systemic acid-base disturbances, and renal tubular function. pH may affect urinary stone formation. For example, urine pH below 6.0 may help reduce the tendency for calcium phosphate stones and pH greater than 6.0 may reduce the tendency for uric acid stone formation. Source: [employer] Current Interpretive Data was last revised on 2017 Protein, ur ql 1+(A) Negative [facility] (MY) Glucose, ur ql Negative Negative [facility] (MY) Ketones, ur 3+(A) Negative [facility] (MY) Bilirubin, ur Negative Negative [facility] (MY) Blood, ur 3+(A) Negative [facility] (MY) Urobilinogen, ur <2.0 <2.0 mg/dL [facility] (MY) Nitrite, ur Negative Negative [facility] (MY) Leukocyte esterase, ur Negative Negative [facility] (MY) UA reflex comment Reflex to microscopic UA will be performed. [facility] (MY) Urine 10/13/2024 10:3 9 PM INDUSTRIAL HYGIENE MANAGER 10/13/2024 11:03 PM INDUSTRIAL HYGIENE MANAGER Valentino Byrd MD LAB MICROBIOLOGY - GENERAL ORD ERABLES Final Result Performing Organization Address [facility] de Phone Number LESLIE [facility] (MY) 1 [facility] [employer] [address] * (ABNORMAL) Urinalysis, microscopic only (10/13/2024 10:39 PM INDUSTRIAL HYGIENE MANAGER) WBC, ur 11-20(A) 0 - 5 /HPF RBC, ur >50(A) 0 - 2 /HPF [facility] (MY) Epithelial cells, squamous, ur 1-5 0 - 5 /HPF [facility] (MY) Bacteria, ur Trace(A) [facility] (MY) Mucous, ur Present(A) [facility] (MY) Culture Reflex Comment Reflex to urine culture will be performed. [facility] (MY) Urine 10/13/2024 10:3 9 PM INDUSTRIAL HYGIENE MANAGER 10/13/2024 11:03 PM INDUSTRIAL HYGIENE MANAGER Valentino Byrd MD LAB URINE ORDERABLES Final Res ult Performing Organization Address [facility] Co de Phone Number LESLIE [facility] (MY) 1 [facility] [place] [address] * Urine culture Urine (10/13/2024 10:39 PM INDUSTRIAL HYGIENE MANAGER) Report Final Report: Less than 100,000 colonies/mL (clinically insignificant growth based on current clinical standards) Comment:Testing performed by : [facility], [address] [place]., [address] Organism (CLINICALLY INSIGNIFICANT GROWTH LESLIE [facility] (MY) Urine 10/13/2024 10:3 9 PM INDUSTRIAL HYGIENE MANAGER 10/14/2024 6:16 AM INDUSTRIAL HYGIENE MANAGER Narrative [facility] (MY) - 10/15/2024 10:11 AM INDUSTRIAL HYGIENE MANAGER Urine culture reflexed based upon urinalysis results. Testing performed by [facility] Microbiology Laboratory ([phone]) Valentino Byrd MD LAB MICROBIOLOGY - GENERAL ORD ERABLES Final Result LESLIE CHAWLA ([place]) 1 [facility] [place] [address] * Sepsis Lactate w/ Reflex (10/13/2024 10:13 PM INDUSTRIAL HYGIENE MANAGER) Pathologist [facility] Sepsis Lactate 2.0 0.7 - 2.0 mmol/L Blood 10/13/2024 10:1 3 PM INDUSTRIAL HYGIENE MANAGER 10/13/2024 10:16 PM INDUSTRIAL HYGIENE MANAGER Valentino Byrd MD LAB BLOOD ORDERABLES Final Res ult LESLIE [facility] ([place]) 1 [facility] [place] [address] * eGFR (10/13/2024 10:13 PM INDUSTRIAL HYGIENE MANAGER) Pathologist [facility] eGFR >90 >=60 mL/min/1. 73 m2 Comment: [...] Inclusion of Race in Diagnosing Kidney Disease, JASN 2020). The CKD-EPI equation should not be used for patients with unstable renal function and has not been validated in children and those over 70. Current interpretive data was last reviewed 2021. Blood 10/13/2024 10:1 3 PM INDUSTRIAL HYGIENE MANAGER 10/13/2024 10:16 PM INDUSTRIAL HYGIENE MANAGER us Valentino Byrd MD LAB BLOOD ORDERABLES Final Res ult [facility] ([place]) 1 [facility] [place] [address] * (ABNORMAL) Differential, auto (10/13/2024 10:13 PM INDUSTRIAL HYGIENE MANAGER) Neutrophil abs 17.0(H) 1.5 - 6.5 K/cumm [...] on 2017. Blood 10/13/2024 10:1 3 PM INDUSTRIAL HYGIENE MANAGER 10/13/2024 10:16 PM INDUSTRIAL HYGIENE MANAGER us Valentino Byrd MD LAB BLOOD ORDERABLES Final Res ult [facility] (MY) 1 [facility] [place] [address] * (ABNORMAL) CBC with auto differential (10/13/2024 10:13 PM INDUSTRIAL HYGIENE MANAGER) WBC 19.3(H) 3.8 - 9.9 K/cumm Hgb [...] [facility] (MY) Blood 10/13/2024 10:1 3 PM INDUSTRIAL HYGIENE MANAGER 10/13/2024 10:16 PM INDUSTRIAL HYGIENE MANAGER Valentino Byrd MD LAB BLOOD ORDERABLES Final Res ult Performing Organization Address City/[facility]/ZIP Co de Phone Number [facility] (MY) 1 [facility] [place] [address] * Lipase (10/13/2024 10:13 PM INDUSTRIAL HYGIENE MANAGER) Pathologist [facility] Lipase 32 10 - 99 Units/L Blood 10/13/2024 10:1 3 PM INDUSTRIAL HYGIENE MANAGER 10/13/2024 10:16 PM INDUSTRIAL HYGIENE MANAGER Valentino Byrd MD LAB BLOOD ORDERABLES Final Res ult Performing Organization Address City/[facility]/ZIP Co de Phone Number [facility] (MY) 1 [facility] [place] [address] * (ABNORMAL) Comprehensive metabolic panel (10/13/2024 10:13 PM INDUSTRIAL HYGIENE MANAGER) Sodium 138 135 - 145 mmol/L Potassium, pl 3.6 3.3 - 4.9 mmol/L [facility] Chloride 105 97 - 110 mmol/L [facility] ([facility] CO2 19(L) 22 - 32 mmol/L [facility] ([facility] Anion gap 15 2 - 15 mmol/L [facility] ([facility] BUN 14 6 - 25 mg/dL [facility] ([facility]) Creatinine 0.72 0.60 - 1.10 [...] [facility] (MY) Blood 10/13/2024 10:1 3 PM INDUSTRIAL HYGIENE MANAGER 10/13/2024 10:16 PM INDUSTRIAL HYGIENE MANAGER us Valentino Byrd MD LAB BLOOD ORDERABLES Final Res ult [facility] (MY) 1 [facility] [place] [address] * N. gonorrhoeae/C. trachomatis Amplification Urine (01/07/2020 12:14 PM CDT) C. trachomatis See Comment Not detected [facility] (MY) Comment: Result is indeterminate suggest recollection. Testing performed by: [facility], [address] [place] [address], [place]., [address] N. gonorrhoeae Not detected Not detected [facility] (MY) Comment: Testing performed by the [facility]. This assay detects Chlamydia trachomatis and Neisseria gonorrhoeae by nucleic acid amplification testing (NAAT). This test is approved by the [place] Food and Drug Administration and the performance characteristics have been verified by the laboratory. The performance characteristics of this test have not been evaluated in women or individuals less than 16 years of age. Testing performed by: [facility], [address] [place] [address]., [address] Urine (None) 01/07/2020 12:1 4 PM CDT 01/07/2020 6:24 PM CDT us Yemi Leigh MD LAB MICROBIOLOGY - GENERAL ORDERABLES Final Result [facility]IE [facility] ([place]) 1 [facility] [place] [address] from Last 3 Months or Most Recently Relevant to Health Maintenance Insurance [facility] Advance Directives For more information, please contact: [phone] * Full Code (Latest Code Status on File) Date Activated Date Inactivated Comments 04/06/2020 2:00 PM 04/08/2020 4:48 PM * Full Code Date Activated Date Inactivated Comments 04/05/2020 7:29 PM 04/06/2020 1:59 PM Full CPR in case of cardiopulmonary arrest Care Teams Footwear Sales Associate Relationship Specialty Start Date End Date Dawit Rivera MD [address] [place] [id number] PCP - General Family Medicine 05/26/24
--- OUTSIDE RECORDS SUMMARY | 2024-12-29 08:56 | XMS_ITS | Data Portability ---
Author Organization [facility] JAIROChelle Address [address] [place] [address] Care Team Providers Care Team Leader/Research Psychologist Name Role Phone SIMBA TIJERINA Art Director Assessment Encounter Date Assessment Date Assessment LastModified by Organization Details LastModified Time 06/17/2023 06/17/2023 classic secondary HSV outbreak. At pts request will get labwork to prove it will rx valtrex in the meantime may be interested in prophylaxis rhiannon Not available 06/17/2023 15:27:23 12/29/2023 12/29/2023 After discussing her irregular bleeding on depo and our list of options, she elects to go on some low dose OCPs before her depo would in February. will call back with progress rhiannon Not available 12/29/2023 16:10:33 Plan of Treatment Reminders Order Date Submit Date Provider Last Modified By Organization Details Last Modified Time Details Appointments None recorded. Lab test, urine 2022 023 [email or web address] In-Office Order, Internal Use Only DO Not Attach Compendium DO Not Attach Compendium, Do Not Delete/merge, [id number] 10:57:42 test, urine 2022 023 [email or web address] In-Office Order, Internal Use Only DO Not Attach Compendium DO Not Attach Compendium, Do Not Delete/merge, [id number] 14:19:01 hsv (1+2) igg, serum 2022 023 [facility], [address], [address], [place], [address], 3 11:12:38 Referral None recorded. Procedures None recorded. Surgeries None recorded. Imaging None recorded. Medication Orders 24 1 mg-20 mcg (24)/75 mg (4) tablet 2023 024 [employer] [facility] #82343, [address], [place], [id number], 4 18:46:19 medroxyprog esterone 150 mg/mL intramuscul ar suspension 2023 024 [address] [employer] [employer] [facility] #85435, [address], [place], [id number], 4 10:30:33 medroxyprog esterone 150 mg/mL intramuscul ar suspension 2023 024 [employer] #50496, [address], [place], [id number], 4 10:30:33 medroxyprog esterone 150 mg/mL intramuscul ar suspension [address] [employer] #26025, [address], [place], [id number], 3 10:57:42 valacyclovi r 1 gram tablet 2022 023 [facility] [employer] [facility] #20912, [address], [place], [id number], 3 15:26:51 Patient TargetsNo targets recorded. Patient Instructions Encounter Date Encounter Id Patient Instructions Last Modified By Organization Details Last Modified Time 06/17/2023 [id number] genital herpes i n teens: care instructions [email or web address] Not available 06/17/2023 15:22:17 Reason for Referral None Reported. Results Created Date Observation Date Name Description Value Unit Range Abnormal Flag Note LastModifiedBy Organization Detail LastModifiedTime 06/17/20 23 06/18/2023 HSV 1 AND 2 AB, IGG hsv 1 IgG, type spec <0.91 index 0.00-0 .90 Negat andrea <0.91 Equiv ocal 0.91 - 1.09 Posit andrea >1.09 Note: Negat andrea indic ates no antib odies detec quincy to HSV-1 . Equiv ocal may sugge st early infec tion. If clini thi appro priat e, retes t at later date. Posit andrea indic ates antib odies detec quincy to HSV-1 . Not Available [facility] ([facility]) [address], [place], [address], 06/18/2023 11:12:38 06/17/20 23 06/18/2023 HSV 1 AND 2 AB, IGG hsv 2 IgG, type spec 8.83 index 0.00-0 .90 above high normal Negat andrea <0.91 Equiv ocal 0.91 - 1.09 Posit andrea >1.09 HSV-2 Antib gilbert Inter preta tion: Negat andrea indic ates no detec table antib odies to HSV-2 were found . If recen t expos ure is suspe cted, retes t in 4-6 weeks . Equiv ocal sampl es shoul d be retes quincy in 4-6 weeks . Posit andrea indic ates the prese nce of detec table IgG antib gilbert to HSV-2 . False posit andrea resul ts may occur . Repea t testi ng, or testi ng by a diffe rent metho d, may be indic ated in some setti ngs (e.g. patie nts with low likel ihood of HSV infec tion) . If clini thi appro priat e, retes t 4-6 weeks later . Not Available [facility] ([facility]) [address], [place], [address], 06/18/2023 11:12:38 08/18/20 23 08/18/2023 pregn leidy test, urine HCG negati ve Not Available In-Office Order Internal Use Only DO Not Attach Compendium DO Not Attach Compendium, Do Not Delete/merge, [id number] 08/18/2023 11:50:02 09/01/20 23 09/01/2023 pregn leidy test, urine HCG negati ve Not Available In-Office Order Internal Use Only DO Not Attach Compendium DO Not Attach Compendium, Do Not Delete/merge, [id number] 09/01/2023 10:41:56 Result Notes None recorded. Problems No Known Problems Procedures Surgical History Date Name Laterality Status Provider Name and Address Organization Details Recorded Time hernia repair completed Margo Chambers, RN [place] - [facility] 02/14/2020 15:38:48 Imaging Results None recorded. Procedure Notes None recorded. Medical Equipment None Reported. Allergies No known drug allergies Medications Name Sig Start Date Stop Date Status Note LastModified by Organization Details LastModified Time venlafaxine ER 37.5 mg capsule,ext ended release 24 hr TAKE 1 CAPSULE BY MOUTH DAILY active Not Available Not Available No t Available fluconazole 150 mg tablet TAKE 1 TABLET BY MOUTH DAILY 07/26 completed Not Available Not Available Not Available valacyclovi r 1 gram tablet TAKE 1 TABLET BY MOUTH EVERY 12 HOURS FOR 10 DAYS; call office for appt please 2024 active Not Available Not Available Not Avai lable hydrocodone 5 mg-acetamin ophen 325 mg tablet TAKE 1 TABLET BY MOUTH EVERY 8 HOURS NEEDED FOR PAIN active Not Available Not Available No t Available valacyclovi r 500 mg tablet TAKE 1 TABLET BY MOUTH EVERY DAY active Not Available Not Available No t Available terbinafine HCl 250 mg tablet TAKE 1 TABLET BY MOUTH DAILY active Not Available Not Available No t Available tamsulosin 0.4 mg capsule TAKE 1 CAPSULE BY MOUTH DAILY active Not Available Not Available No t Available oseltamivir 75 mg capsule 10/25 completed Not Available Not Available Not Available ferrous sulfate 325 mg (65 mg iron) tablet 01/21 completed Not Available Not Available Not Available epinephrine 0.3 mg/0.3 mL injection, auto-inject or INJECT 1 PEN IN THE MUSCLE ONE TIME NEEDED active Not Available Not Available No t Available ibuprofen 600 mg tablet TAKE 1 TABLET BY MOUTH THREE TIMES DAILY TAKE WITH FOOD. 10/25 completed Not Available Not Available Not Available albuterol sulfate HFA 90 mcg/actuati on aerosol inhaler INHALE 2 PUFFS BY MOUTH INTO THE LUNGS EVERY 6 HOURS NEEDED active Not Available Not Available No t Available ketoconazol e 2 % topical cream APPLY MODERATEL Y TO THE AFFECTED AREA TWICE DAILY active Not Available Not Available No t Available ondansetron 4 mg disintegrat ing tablet DISSOLVE 1 TABLET ON THE TONGUE EVERY 8 HOURS NEEDED FOR NAUSEA OR VOMITING active Not Available Not Available No t Available fluoxetine 20 mg capsule TAKE 1 CAPSULE BY MOUTH DAILY active Not Available Not Available No t Available sertraline 50 mg tablet 01/21 completed Not Available Not Available Not Available medroxyprog esterone 150 mg/mL intramuscul ar suspension INJECT 1 ML( 150 MG) IN THE MUSCLE DIRECTED 2023 active Not Available Not Available Not Avai lable amoxicillin 875 mg-potassiu m clavulanate 125 mg tablet TAKE 1 TABLET BY MOUTH TWICE DAILY 12/28 completed Not Available Not Available Not Available bupropion HCl XL 300 mg 24 hr tablet, extended release TAKE 1 TABLET BY MOUTH DAILY active Not Available Not Available No t Available bupropion HCl XL 150 mg 24 hr tablet, extended release TAKE 1 TABLET BY MOUTH DAILY active Not Available Not Available No t Available Xulane 150 mcg-35 mcg/24 hr transdermal patch Apply 1 patch(es) every week by transderm al route. 10/25 completed Not Available Not Available Not Available Aurovela 24 Fe 1 mg-20 mcg (24)/75 mg (4) tablet TAKE 1 TABLET BY MOUTH EVERY DAY active Not Available Not Available No t Available Vitals Date Recorded Body height Body mass index (BMI) Percentile per age and sex Body mass index (BMI) Body weight Systolic blood pressure Diastolic blood pressure Provider Name and Address Organization Details Last Updated DateTime 3 172.72 cm 52 % 21.6 kg/m2 85251.4 g 142 mm[Hg] 80 mm[Hg] AMBROCIO Puckett [facility] 3 15:16:42 Date Recorded Body height Body mass index (BMI) Body mass index (BMI) Percentile per age and sex Body weight Provider Name and Address Organization Details Last Updated DateTime 08/18/2023 172.72 cm 21.9 kg/m2 55 % 04286.3 g Margo Gaona RN [facility] 08/18/2023 11:47:20 Date Recorded Body height Body mass index (BMI) Body mass index (BMI) Percentile per age and sex Body weight Provider Name and Address Organization Details Last Updated DateTime 09/01/2023 172.72 cm 21.9 kg/m2 55 % [address]2662.[address] [facility] 09/01/2023 10:40:37 Date Recorded Body height Body mass index (BMI) Percentile per age and sex Body mass index (BMI) Body weight Provider Name and Address Organization Details Last Updated DateTime 12/01/2023 172.72 cm 54 % 21.9 kg/m2 33870.[address] [facility] 12/01/2023 09:42:30 Date Recorded Body height Body mass index (BMI) Percentile per age and sex Body mass index (BMI) Body weight Systolic blood pressure Diastolic blood pressure Provider Name and Address Organization Details Last Updated DateTime 172.72 cm 54 % 21.9 kg/m2 37056.5 9 g 116 mm[Hg] 82 mm[Hg] Nola Beck [facility] 4 15:57:38 Social History Question Answer Notes LastModified by Organizat ion Details LastModified Time Tobacco Smoking Status Never Smoker Margo Gaona RN [facility], [facility] 02/14/2020 15:51:31 In The 14 Days Before Symptom Onset, Have You Had Close Contact With A Laboratory-confir med COVID-19 While That Case Was Ill? No Information not available 01/21/2022 In The 14 Days Before Symptom Onset, Have You Had Close Contact With A Person Who Is Under Investigation For COVID-19 While That Person Was Ill? No Information not available 01/21/2022 Have You Been To An Area Known To Be High Risk For COVID-19? No Information not available 01/21/2022 Do You Or Have You Ever Used E-cigarettes Or Vape? Never Used Electronic Cigarettes Information not available 09/01/2020 What Was The Date Of Your Most Recent Tobacco Screening? 12/29/2023 Information not available 12/29/2023 Do You Or Have You Ever Used Smokeless Tobacco? Never Used Smokeless Tobacco Information not available 09/01/2020 How Much Tobacco Do You Smoke? No Information not available 09/01/2020 Has Tobacco Cessation Counseling Been Provided? No Information not available 01/21/2022 On What Date Was Tobacco Cessation Counseling Provided? 01/21/2022 Information not available 01/21/2022 Do You Or Have You Ever Used Any Other Forms Of Tobacco Or Nicotine? No Information not available 01/21/2022 Sex: Female Functional Status None recorded. Mental Status None recorded. Family History Relationship Description Onset Age of this Age Resolved Age Notes LastModified by Organization Details LastModified Time Father No current problems or disability [email or web address] Not available 09/01 16:47:50 Mother No current problems or disability [email or web address] Not available 09/01 16:47:50 Notes:Other [place] (Mother) Medical History Condition Response Asthma Y Gynecological History Statement/Question Response STIs/STDs Yes HPV Vaccine Y Date of Last Pap Smear Age at Menarche 10 Current Control Method Depo-[employer] a LMP Approximate Sexually Active? Y Obstetrics History GPAL:G 1 P 1 0 0 1 Type Value Full Term 1 Living 1 Total 1 Immunizations Vaccine Type Date Status Note Provider Nam e and Address Organization Details Recorded Time DTaP-IPV 0 completed Nola Beck RMA [place], [place] [facility] 07/29/2022 15:30:21 meningococcal MCV4P 6 completed Nola Beck [place] [facility] 07/29/2022 15:30:21 DTaP-Hep B-IPV 5 completed Nola [place] [facility] 07/29/2022 15:30:21 Hib, unspecified formulation 5 completed Nola [place] [facility] 07/29/2022 15:30:21 Hib, unspecified formulation 5 completed Nola [place] [facility] 07/29/2022 15:30:21 DTaP 6 completed Nola [place] [facility] 07/29/2022 15:30:21 HPV9 6 completed Nloa Beck, R[place] [facility] 07/29/2022 15:30:21 pneumococcal conjugate PCV 7 5 completed Nola Beck, [place] [facility] 07/29/2022 15:30:21 MMRV 0 completed Nola Beck, [place] [facility] 07/29/2022 15:30:21 Hep B, adolescent or pediatric 5 completed Nola Beck, [place] [facility] 07/29/2022 15:30:21 Hep A, ped/adol, 2 dose 6 completed Nola [place] [facility] 07/29/2022 15:30:21 pneumococcal conjugate PCV 7 6 completed Nola [place] [facility] 07/29/2022 15:30:21 Tdap 6 completed Nola [place] [facility] 07/29/2022 15:30:21 pneumococcal conjugate PCV 7 5 completed Nola [place] [facility] 07/29/2022 15:30:21 pneumococcal conjugate PCV 7 5 completed Nola Beck, [place] [facility] 07/29/2022 15:30:21 varicella 6 completed Nola [place] [facility] 07/29/2022 15:30:21 HPV9 9 completed Nola Beck, [place] [facility] 07/29/2022 15:30:21 MMR 6 completed Nola [place] [facility] 07/29/2022 15:30:21 DTaP-Hep B-IPV 5 completed Nola [place] [facility] 07/29/2022 15:30:21 Hib, unspecified formulation 6 completed N[place] [facility] 07/29/2022 15:30:21 DTaP-Hep B-IPV 5 completed DEBBIE PuckettA [place] [facility] 07/29/2022 15:30:21 Hep A, ped/adol, 2 dose 9 completed Nola Beck, RMJosselyn [place] [facility] 07/29/2022 15:30:21 Tdap 0 completed Norma Arceo [place], [place] [facility] 03/07/2020 11:46:00 Past Encounters Encounter ID Performer Location Encounter Start Date Encounter Closed Date Diagnosis/Indication Diagnosis SNOMED-CT Code Diagnosis ICD10 Code Diagnosis Note [id number] MD [facility] OB [address] [facility] [place] [address] 02/16/2020 10:21:18 02/17/2020 13:17:25 Normal 07020620 Z34.90 [id number] MD [facility] OB [address] [facility] [place] [address] 02/22/2020 11:37:04 02/23/2020 12:00:45 Normal 64260652 Z34.90 [id number] MD [facility] OB [address] [facility] [place] [address] 03/07/2020 10:57:40 03/08/2020 13:41:24 Routine care 590427528 Z34.93 Normal 4781950 2 Z34.90 Administra tion of diphtheria, pertussis, and tetanus vaccine 809141863 Z23 [id number] MD [facility] OB [address] [facility] [place] [address] 03/14/2020 11:50:11 03/15/2020 12:57:50 Routine care 453759640 Z34.93 Normal 1917758 2 Z34.90 [id number] MD [facility] 14 OB [address] [facility] [place] [address] 03/21/2020 11:43:54 03/22/2020 13:40:26 Normal 40304533 Z34.90 [id number] MD My [facility] 14 OB [address] [facility] [place] [address] 03/28/2020 11:36:38 03/29/2020 12:12:40 Normal 07925835 Z34.90 [id number] MD My [facility] 14 OB [address] [facility] [place] [place] [address] 04/04/2020 11:38:34 04/05/2020 12:35:06 Normal 52666974 Z34.90 [id number] Simba Tijerina MD My 14 OB [address] [facility] [place] [place] [address] 06/01/2020 16:02:51 06/02/2020 11:18:17 care 618162240 Z39.2 Contracept ion care management 399672510 Z30.9 [id number] Margo Gaona RN My 14 OB [address] [facility] [place] [address] 06/02/2020 09:43:58 06/05/2020 09:53:42 Contraception care management 921327518 Z30.9 [id number] Nola Beck Josselyn [place] [address] [place] [address] [place] [address] 09/01/2020 16:31:47 09/04/2020 12:58:00 Contraception care management 652042807 Z30.9 [id number] AMBROCIO Puckett 14 OB [address] [facility] [place] [place] [address] 11/29/2020 14:58:11 11/30/2020 12:46:45 Contraception care management 452879424 Z30.9 [id number] Nola Beck Josselyn [place] [address] [place] [address] [place] [address] 02/28/2021 14:02:56 03/01/2021 13:19:39 Contraception care management 507505784 Z30.9 [id number] AMBROCIO Puckett [address] [place] [address] [place] [address] 06/11/2021 11:05:03 06/13/2021 12:50:26 Contraception care management 341294101 Z30.9 [id number] AMBROCIO Puckett 14 OB [address] [facility] [place] [place] [address] 06/25/2021 10:27:20 06/27/2021 11:57:49 Contraception care management 012944148 Z30.9 [id number] AMBROCIO Puckett 14 OB [address] [facility] [place] [place] [address] 09/20/2021 10:36:43 09/24/2021 06:48:19 Contraception care 975178694 Z30.40 Contracept ion care management 781180487 Z30.9 [id number] MD My [facility] 14 OB [address] [facility] [place] [place] [address] 01/21/2022 15:16:49 01/22/2022 05:40:27 Contraception care management 049167537 Z30.9 [id number] MD My [facility]om[facility] 14 OB [address] [facility] [place] [address] 07/29/2022 15:08:28 07/30/2022 10:03:53 Depressive disorder 48663093 F32.A Contracept ion care management 844511125 Z30.9 [id number] AMBROCIO Puckett 14 OB [address] [facility] [place] [place] [address] 08/07/2022 08:58:04 08/13/2022 13:43:32 Contraception care 835154817 Z30.40 [id number] MD My Lomeli [address] [place] [address] [place] [address] 10/25/2022 11:12:51 10/28/2022 12:29:03 Genital herpes simplex 41231010 A60.9 [id number] AMBROCIO Puckett 14 OB [address] [facility] [place] [address] 11/08/2022 10:59:43 11/11/2022 07:15:57 Genital herpes simplex 97817680 A60.9 Contraception care 85363 5005 Z30.40 [id number] AMBROCIO Puckett 14 OB [address] [facility] [place] [address] 02/04/2023 14:02:46 02/05/2023 09:17:31 Contraception care 923399133 Z30.40 [id number] Nola Beck Josselyn [place] 14 OB [address] [facility] [place] [address] 05/06/2023 14:36:13 05/07/2023 08:54:44 Contraception care 133413487 Z30.40 [id number] Simba Tijerina MD [place] 14 OB [address] [facility] [place] [address] 06/17/2023 15:09:52 06/24/2023 11:48:55 Genital herpes simplex 96536326 A60.9 [id number] Margo Gaona RN [place] 14 OB [address] [facility] [place] [address] 08/18/2023 11:33:48 08/20/2023 09:39:28 Contraception care management 103223993 Z30.9 [id number] Nola Beck Josselyn [place] 14 OB [address] [facility] [place] [address] 09/01/2023 10:24:58 09/02/2023 08:55:11 Contraception care 779977211 Z30.40 [id number] Nola Beck Josselyn [place] 14 OB [address] [facility] [place] [address] 12/01/2023 09:30:00 12/02/2023 09:55:55 Contraception care 980324818 Z30.40 Surveillan ce of depot contraception done 2928865332 9104 Z30.42 [id number] Simba Tijerina MD My 14 OB [address] [facility] [place] [address] 12/29/2023 15:51:05 12/30/2023 08:28:33 Positive screening for depression on PHQ-9 (Patient Health Questionnaire 9) 7426898936 20871 Z13.31 Irregular periods 307201 07 N92.6 Health Concerns Section Related Observation LastModified by Organization Detai ls LastModified Time None Recorded Concern Status LastModified by Organization Details LastModified Time None Recorded Advance Directives Directive None Recorded Payers Encounter Date Sequence Insurance Name Policy Number Policy Helms Covered Member ID Helms Member ID Guarantor Name 06/17/2023 1 [facility] ON OR AFTER 03/15/21 (MEDICAID REPLACEMENT - HMO) Rosalba Lenz [id number] Ebony Lenz 08/18/2023 1 [facility] ON OR AFTER 03/15/21 (MEDICAID REPLACEMENT - HMO) Rosalba Delfin [id number] Ebony Lenz 09/01/2023 1 [facility] ON OR AFTER 03/15/21 (MEDICAID REPLACEMENT - HMO) Rosalba Lenz [id number] Ebony Lenz 12/01/2023 1 [facility] ON OR AFTER 03/15/21 (MEDICAID REPLACEMENT - HMO) Rosalba Delfin [id number] Ebony Lenz 12/29/2023 1 [facility] ON OR AFTER 03/15/21 (MEDICAID REPLACEMENT - HMO) Rosalba Delfin [id number] Ebony Lenz Notes Date Note Type Note Provider Name and Address Organization Details Recorded Time 06/17/2023 text/html Diagnosed with HSV2 primary outbreak here in october. Her primary MD told her she didnt have herpes. Now with blister recurrence in same area and pain on skin with urination Simba Tijerina MD Attn: [address] [place], [address], [facility] 06/17/2023 15:27:35 12/29/2023 text/html On depo for over a year now with no resolution of her irregular bleeding didnt like patches in past no other symptoms Simba Tijerina MD Attn: [address] [place], [address], [facility] 12/29/2023 16:10:45 OBGyn Episode Ob Episode Information Episode Created Date Number of Fetuses Patient Bloodtype Patient rh Status Prepregnancy Weight lbs Domestic Partner Domestic Partner Phone Father Name Electronic Device Monitor Status 02/14/20 20 1 AB Positive CLOSED Fetus Data First Name Last Name Admitted to NICU Weight (g) Sex Living Outcome Pediatric Complications Fetus ID Race Codes Race Delivery Type Estephanie Greenberg son 3912.23 1 M true Full Term [id number] 8-6 Afric an [employer] can Vaginal Ilia Calculation Initial Ilia Date Initial Exam Date Initial Exam Provider Initial Ultrasound Date Last Menstrual Period Date Ultra Sound Weeks Gestation 04/04/2020 02/14/2020 [email or web address] 10/21/2019 06/29/2019 16 Eighteen To Twenty Week Ilia Update Ultra Sound Date Fundal Height At Umbil Quickening Date Ultra Sound Latest Weeks Gestation Final Ilia Confirmed By Final Ilia Confirmed Date Final Ilia Date Ultra Sound Latest Days Gestation 12/10/19 20 23 04/04/20 20 3 Pre- Flowsheet Flowsheet Date 02/16/2020 Christensen Score Blood Edema Fundus Height Fundus Units Glucose Ketones Leukocytes Nitrite Labor Signs Protein Cervic Dilation Cervic Effacement Cervic Station none 31 cm Type Weight in lbs Pre/Post Dialysis Refused With clothes 172.207215833129 BP Diastolic BP Location Tested BP Systolic BP Type 63 118 sitting Fetus Heart Rate Present A 153 Present Fetus Movement A Yes Comments New pt. to 77 y.o. victor m nning to keep baby. Good parental support.Relatively uncomplicated care except a + chlamydia initially.Discussed OB issues on video chat with pt's mom in waiting area.Needs HSV drawn as well as a UDS, pt. requests repeat KAMERON for chlamydia Flowsheet Date 02/22/2020 Christensen Score Blood Edema Fundus Height Fundus Units Glucose Ketones Leukocytes Nitrite Labor Signs Protein Cervic Dilation Cervic Effacement Cervic Station none 32 cm Type Weight in lbs Pre/Post Dialysis Refused With clothes 174.85813363756 BP Diastolic BP Location Tested BP Systolic BP Type 72 114 sitting Fetus Heart Rate Present A 147 Present Fetus Movement A Yes Comments doing well, no new issues to day, good spirits.GBS done today, hopefully TDAP in peds at next visit.all STD tests done last time were (-). Flowsheet Date 03/07/2020 Christensen Score Blood Edema Fundus Height Fundus Units Glucose Ketones Leukocytes Nitrite Labor Signs Protein Cervic Dilation Cervic Effacement Cervic Station none 34 cm none Type Weight in lbs Pre/Post Dialysis Refused With clothes 179.816285626434 BP Diastolic BP Location Tested BP Systolic BP Type 76 122 sitting Fetus Heart Rate Present A 141 Present Fetus Movement A Yes Comments 36 weeks, teenage . doing well so far.discussed labor signs, when to go to the hospitalhopefully TDAP in peds today Flowsheet Date 03/14/2020 Christensen Score Blood Edema Fundus Height Fundus Units Glucose Ketones Leukocytes Nitrite Labor Signs Protein Cervic Dilation Cervic Effacement Cervic Station none 35 cm none neg 0cm 50% -4 Type Weight in lbs Pre/Post Dialysis Refused With clothes 182.18290617363 BP Diastolic BP Location Tested BP Systolic BP Type 74 126 sitting Fetus Heart Rate Present A 149 Present Fetus Movement A Yes Comments doing well, no big issues.ce rvix cl/50%labor discussed. EFW around 6'6 Flowsheet Date 03/21/2020 Christensen Score Blood Edema Fundus Height Fundus Units Glucose Ketones Leukocytes Nitrite Labor Signs Protein Cervic Dilation Cervic Effacement Cervic Station 36 cm none neg Type Weight in lbs Pre/Post Dialysis Refused With clothes [id number] BP Diastolic BP Location Tested BP Systolic BP Type 60 126 sitting Fetus Heart Rate Present A 152 Fetus Movement A Yes Comments doing well, discussed labor signs.encouragement given. good spirits Flowsheet Date 03/28/2020 Christensen Score Blood Edema Fundus Height Fundus Units Glucose Ketones Leukocytes Nitrite Labor Signs Protein Cervic Dilation Cervic Effacement Cervic Station none 36 cm 0cm 70% -3 Type Weight in lbs Pre/Post Dialysis Refused With clothes [id number] BP Diastolic BP Location Tested BP Systolic BP Type 72 120 sitting Fetus Heart Rate Present A 144 Present Fetus Movement A Yes Comments doing well, cervix still jose a sed.discussed induction pros and cons if goes overdue,labor instructions Flowsheet Date 04/04/2020 Christensen Score Blood Edema Fundus Height Fundus Units Glucose Ketones Leukocytes Nitrite Labor Signs Protein Cervic Dilation Cervic Effacement Cervic Station none 37 cm Type Weight in lbs Pre/Post Dialysis Refused With clothes [id number] BP Diastolic BP Location Tested BP Systolic BP Type 74 126 sitting Fetus Heart Rate Present A 145 Present Fetus Movement A Yes Comments Post dates induction schedul ed for friday nightspoke with pt's mom on video calldiscussed induction pros and cons Menstrual History Last Menstrual Date Menses Monthly On Bcp Conception Prior Menses Frequency Hcg Plus Date Menarche Onset Age 1006/29/2019 11 Genetic Screening And Infection History Question Response Note Patient's Age Will Be 35 Years Or Older At Estim ated Date of Delivery false Thalassemia (Kazakh, Swedish, Mediterranean, Or Background): MCV < 80 false Neural Tube Defect (Meningomyelocele, Spina Bifi da, Or Anencephaly) false Congenital Heart Defect false Down Syndrome false Julio C-Sachs (eg, Anglican, Cajun, Georgian-Dunmor) f alse Isidra Disease false Sickle Cell Disease Or Trait () false Hemophilia Or Other Blood Disorders false Muscular Dystrophy false Cystic Fibrosis false Gonzales's Chorea false Mental Retardation/Autism false If Yes, Was Person Tested For Fragile X? false Other Inherited Genetic Or Chromosomal Disorder false Maternal Metabolic Disorder (eg, Type 1 Diabetes , PKU) false Patient Or Baby's Father Had A Child With Defects Not Listed Above false Recurrent Loss, Or A Stillbirth false Medications (including Suppl ements, Vitamins, Herbs, OTC Drugs), Illicit/Recreational Drugs, Alcohol false If Yes, Agent(s) And Strength/Dosage false Any Other Genetic History false Live With Someone With TB Or Exposed To TB false Patient Or Partner Has History Of Genital Herpes false Rash Or Viral Illness Since Last Menstrual Perio d false History Of STD, Gonorrhea, Chlamydia, HPV, Syphi lis false Other Infection History false History of HIV false History of Hepatitis false Prior GBS-infected child false Delivery Information Delivery Date Delivery Type Labor Anesthesia Weeks Gestation Incision Type Labor Labor Length Hrs Delivered By Post Complications Tubal Sterilization Discharge Date Comments 0 Induce d 40.2 false [email or web address] 04/08/2020 Discharge Information Feeding Method Contraceptive Method Maternal HG B and HCT Levels Bottle
== END 2024-12-29 08:36 | disposition home or self-care (01) ==
LOC: ANHIMG 08:40
PROVIDERS: PCP Family Medicine; Visit Provider Family Medicine
DX: N83.209 Unspecified ovarian cyst, unspecified side (principal)
CPT/HCPCS: 76830; 76856